=== PATIENT | female | born 1950 | race Caucasian/White ===

== ENCOUNTER → 2017-07-07 | Outpatient (CLI) | payer MEDICARE, OTHER ==
[~2017-07-07] MED LIST: ATR10 PO; CA C1TAB85 PO; CALC-635 PO; CHOL200021 PO; CRAN500C11 PO; ENO100I; FLU45SYR17 IM; FLU45SYR25 IM ONLY; FLU60SYR30 IM ONLY; HCTZ25 PO; HYDR12.556 PO; LACT1CAP6 PO; LOVA20TA99 PO; METO-253 PO; MULT-820 PO; OMEG-55 PO; PNEI IJ; PNEU0.5D3 IM; VAL80 PO; VALS80TA2 PO; WARF2.5T62 PO; WARF3TAB43 PO; [UNRECOGNIZED DRUG - REMARK]
--- NOTE | 2017-07-09 08:55 | RADIOLOGY IMAGING REPORT ---
[place] [facility] [place] NAME: JASKARAN MARY : [id number] MR: [id number] V: [id number] EXAM DATE: [id number] ORDERING PHYSICIAN: SHARONDA GUY TECHNOLOGIST: Belinda Espino PROCEDURE:BILATERAL DIGITAL SCREENING MAMMOGRAM WITH CAD ASSISTED INTERPRETATION AND 3D BREAST TOMOSYNTHESIS. COMPARISON:Prior mammograms dated 07/03/16, 07/02/15, 06/28/14, 06/27/13, 06/25/12 and 06/24/11. INDICATIONS:SCREENING. FINDINGS: Moderately heterogeneous fibroglandular tissue is seen throughout the breasts. The parenchymal pattern has remained stable when allowing for difference in mammographic technique and patient positioning. There is no evidence of malignant appearing mass, malignant appearing calcification or other secondary sign of malignancy in either breast. DIAGNOSTIC CATEGORY 2--BENIGN FINDING. RECOMMENDATIONS: ROUTINE MAMMOGRAM AND CLINICAL EVALUATION. IMPRESSION: BI-RADS 2: No significant abnormality seen. Images were reviewed with R2CAD and 3D breast tomosynthesis. Dictated by: Goldie Carrion M.D. on 07/07/2017 at 17:22 Transcribed by: ALEXANDREA on 07/07/2017 at 18:48 Approved by: Goldie Carrion M.D. on 07/09/2017 at 8:54 [facility]
== END ==
LOC: MAMO 01:24
PROVIDERS: ATTEND Obstetrics & Gynecology
DX: Z12.31 Encounter for screening mammogram for malignant neoplasm of breast (principal)
CPT/HCPCS: 77063; 77067

== ENCOUNTER → 2018-07-13 | Outpatient (CLI) | payer MEDICARE, OTHER ==
[~2018-07-13] MED LIST changes: +FLAX100027 PO; +FLAX1CAP4 PO; +FLU180SY11 IM; +KRIL1CAP19 PO; +KRIL1CAP4 PO; +LOSA50TA80 PO; +OMEG-41 PO; +OMEG1CAP35 PO; -VALS80TA2 PO; +VALS80TA8 PO; +WARF3TAB14 PO; -WARF3TAB43 PO
--- NOTE | 2018-07-14 08:26 | RADIOLOGY IMAGING REPORT ---
FACILITY: [facility] PATIENT NAME: JASKARAN MARY : [id number] MR: [id number] V: [id number] EXAM DATE: ORDERING PHYSICIAN: DORIS MENDES TECHNOLOGIST: Hannah Osborn PROCEDURE:BILATERAL DIGITAL SCREENING MAMMOGRAM WITH CAD ASSISTED INTERPRETATION & 3D TOMOSYNTHESIS COMPARISON:Prior mammograms 07/07/17, 07/03/16, 07/02/15, 06/28/14, 06/27/13, 06/25/12. INDICATIONS:screening FINDINGS: The breasts are heterogeneously dense which can obscure small masses. The parenchymal pattern has remained stable allowing for difference in mammographic technique & patient positioning. DIAGNOSTIC CATEGORY 1--NEGATIVE. RECOMMENDATIONS: ROUTINE MAMMOGRAM AND CLINICAL EVALUATION. IMPRESSION: BIRADS 1: Negative. No significant abnormality is seen. Dictated by: Goldie Carrion M.D. on 07/13/2018 at 17:04 Transcribed by: SHARLA on 07/14/2018 at 8:12 Approved by: Goldie Carrion M.D. on 07/14/2018 at 8:25 [facility]
== END ==
LOC: MAMO 00:51
PROVIDERS: ATTEND Student in an Organized Health Care Education/Training Program
DX: Z12.31 Encounter for screening mammogram for malignant neoplasm of breast (principal)
CPT/HCPCS: 77063; 77067